=== PATIENT | female | born 1995 | race Caucasian/White ===

== ENCOUNTER 2017-06-15 14:47 | Emergency (ER) | payer MEDICAID ==
[~2017-06-15] VITALS: Ht 154.9 cm; Wt 49.9 kg
[2017-06-15] MEDS ORDERED: GUAIFENESI100 MG/5 M ORAL ×2 (15:08→16:23)
[2017-06-15 15:10] VITALS: BP 119/67
[2017-06-15 15:15] VITALS: BP 115/77
[2017-06-15 15:20] VITALS: BP 115/69
[2017-06-15 15:40] VITALS: BP 117/71
--- NOTE | 2017-06-15 15:56 | Emergency Room Report ---
History of Present Illness General Chief Complaint: General Complaint Source: Patient Present Illness HPI Patient is a 21-year-old female presented after increased nasal congestion cough and sore throat. The patient had gradual onset of symptoms. She reports having a minimal nonproductive cough. She denies any severe headache. She reports having generalized body aches. The patient had reported some the change in her voice. Allergies: Coded Allergies: No Known Allergies (Unverified , 06/15/17) Patient History Past Medical History: see triage record Last Menstrual Period: 05/17/17. Now: No Reviewed Nursing Documentation: PMH: Agreed, PSxH: Agreed Nursing Documentation-PMH Past Medical History: No Stated History Review of Systems All Other Systems: negative except mentioned in HPI Physical Exam Vital Signs Date Time Temp Pulse Resp B/P (MAP) Pulse Ox O2 Delivery O2 Flow Rate FiO2 06/15/17 14:52 98.6 131 21 100/66 100 Room Air General Appearance: well appearing, no apparent distress, alert, GCS 15 Head: normocephalic, atraumatic ENT: hearing grossly normal, normal voice Neck: full range of motion, supple Respiratory: no respiratory distress, speaking full sentences Cardiovascular #1: normal inspection, regular rate, rhythm Gastrointestinal: normal inspection, soft Musculoskeletal: normal inspection, back normal, digits/nails normal, no calf tenderness Neurologic: normal inspection, alert, oriented x3, normal gait Psychiatric: mood/affect normal Skin: no rash Medical Decision Making Diagnostic Impression: Primary Impression: Laryngitis Patient presented for sore throat. Differential diagnosis included but was not limited to meningitis, exudative tonsillitis, retropharyngeal abscess, epiglottitis, strep pharyngitis. Patient's benign exam and does not appear to require any further imaging or laboratory testing at this time. the patient appears to haveviral pharyngitis. uvula is midline. The patient is advised to follow up with primary care doctor in 1-2 days. Patient is advised to return if any worsening condition or if any changes in status that are concerning. This report is dictated with [employer] power transmission engineer software which may occasionally lead to discrepancies related to use of this software. Last Vital Signs Date Time Temp Pulse Resp B/P (MAP) Pulse Ox O2 Delivery O2 Flow Rate FiO2 06/15/17 15:20 17 115/69 100 Room Air 06/15/17 15:15 112 06/15/17 15:10 98.6 Status: improved Disposition: HOME, SELF-CARE Condition: Stable Scripts Guaifenesin* (GUAIFENESIN) 100 Mg/5 Ml Liquid 5 ML ORAL Q6H, #120 ML 0 Refills Prov: Shemar Grijalva 06/15/17 Referrals: [facility],REFERRING (PCP) Departure Forms: Return to Work Return to Work in (Days): 4 Patient Instructions: Laryngitis Shemar Grijalva Jun 15, 2017 15:56
== END 2017-06-15 15:40 | disposition home or self-care (01) ==
LOC: EMR 15:00
DX: J04.0 Acute laryngitis (principal)
CPT/HCPCS: 99283